=== PATIENT | male | born 2000 | race Hispanic/Latino ===

== ENCOUNTER 2022-05-10 09:00 | Emergency (ER) | payer OTHER ==
[~2022-05-10] VITALS: Ht 167.6 cm; Wt 72.6 kg
[2022-05-10 09:36] LABS: BASOPHILS % (AUTO) 1.5 % (0.0-5.0); EOSINOPHILS % (AUTO) 9.4 % (0.0-8.0); HEMATOCRIT 45.8 % (42-54); MEAN CORPUSCULAR HEMOGLOBIN 27.8 pg (27.0-33.0); MEAN CORPUSCULAR HGB CONC 32.8 g/dL (32.0-36.0); MONOCYTES % (AUTO) 6.1 % (3.0-13.0); NEUTROPHILS % (AUTO) 48.7 % (40.0-77.0); PLATELET COUNT (AUTO) 274 K/uL (130-400); RED BLOOD CELL COUNT(AUTO) 5.39 MIL/uL (4.50-6.20); RED CELL DISTRIBUTION WIDTH 13.1 % (11.0-15.5); WHITE BLOOD COUNT (AUTO) 7.3 K/uL (4.8-10.8)
[2022-05-10 09:43] LABS: POTASSIUM 3.6 mmol/L (3.5-5.1)
[2022-05-10 09:48] LABS: ALBUMIN 4.1 g/dL (3.5-5.0); TOTAL PROTEIN, SERUM 7.6 g/dL (6.0-8.3)
[2022-05-10] MEDS ORDERED: IBUPROFEN 600 MG TABLET PO ONE (11:30)
[2022-05-10] MEDS ORDERED: ALBUTEROL 0.083% 2.5 MG/3 ML INH IH ONE (11:30)
[2022-05-10] MEDS ORDERED: SOLU-MEDROL 40MG VIAL IVP ONE (11:30)
[2022-05-10] MEDS ORDERED: IPRATROPIUM 0.5 MG/2.5 ML INH IH ONE (11:30)
[2022-05-10] MEDS ORDERED: IPRA0.2S54 IH (12:58)
[2022-05-10] MEDS ORDERED: FLUT16H NS (12:58)
[2022-05-10] MEDS ORDERED: BENZ-39 PO (12:58)
[2022-05-10] MEDS ORDERED: PRED20TA3 PO (12:58)
[2022-05-10] MEDS ORDERED: CETI10TA57 PO (12:59)
[2022-05-10 13:04] VITALS: BP 109/60
== END 2022-05-10 13:11 | disposition home or self-care (01) ==
LOC: EDH 09:00
DX: J45.31 Mild persistent asthma with (acute) exacerbation (principal); R07.89 Other chest pain; R05.9 Cough, unspecified; Z20.822 Contact with and (suspected) exposure to COVID-19
CPT/HCPCS: 99285; 96374; 71045; 87635; 83735; 84484; 80053; 85025; 87804 ×2; 36415; 93005; 94640; C9803; J2920

== ENCOUNTER 2023-02-07 00:35 | Emergency (ER) | payer OTHER ==
[~2023-02-07] VITALS: Ht 167.6 cm; Wt 73.9 kg
[~2023-02-07 00:35] MED LIST: BENZ-39 PO; CETI10TA57 PO; FLUT16H NS; IPRA0.2S54 IH; PRED20TA3 PO
[2023-02-07] MEDS ORDERED: KETOROLAC 30MG VIAL (30MG/ML) IVP ONE (01:00)
[2023-02-07] MEDS ORDERED: DiphenhydrAMINE HCL 50 MG/ML VIAL IV ONE (01:00)
[2023-02-07] MEDS ORDERED: METOCLOPRAMIDE 10 MG/2 ML VIAL IVP ONE (01:00)
[2023-02-07] MEDS ORDERED: KETOROLAC 15MG/ML VIAL (15MG/ML) ONE (01:05)
[2023-02-07 01:27] LABS: BASOPHILS # (AUTO) 0.05 K/uL (0.00-0.20); BASOPHILS % (AUTO) 0.5 % (0.0-5.0); EOSINOPHILS # (AUTO) 0.55 K/uL (0.00-0.70); EOSINOPHILS % (AUTO) 5.2 % (0.0-8.0); HEMATOCRIT 45.5 % (42-54); IMMATURE GRANULOCYTE ABSOLUTE 0.03 K/uL (0-1); LYMPHOCYTES # (AUTO) 1.7 K/uL (1.0-4.8); LYMPHOCYTES % (AUTO) 15.9 % (21.0-51.0); MEAN CORPUSCULAR HGB CONC 33.4 g/dL (32.0-36.0); MEAN CORPUSCULAR VOLUME 83.9 fL (79-99); MONOCYTES # (AUTO) 0.6 K/uL (0.1-1.0); MONOCYTES % (AUTO) 5.3 % (3.0-13.0); NEUTROPHILS # (AUTO) 7.7 K/uL (1.8-7.7); NEUTROPHILS % (AUTO) 72.8 % (40.0-77.0); PLATELET COUNT (AUTO) 283 K/uL (130-400); RED BLOOD CELL COUNT(AUTO) 5.42 MIL/uL (4.50-6.20); RED CELL DISTRIBUTION WIDTH 11.9 % (11.0-15.5); WHITE BLOOD COUNT (AUTO) 10.6 K/uL (4.8-10.8)
[2023-02-07 01:39] LABS: POTASSIUM 3.3 mmol/L (3.5-5.1)
[2023-02-07 01:44] LABS: ALBUMIN 3.8 g/dL (3.5-5.0); BILIRUBIN,TOTAL 0.2 mg/dL (0.2-1.0); TOTAL PROTEIN, SERUM 7.3 g/dL (6.0-8.3)
[2023-02-07 01:46] LABS: RAPID GROUP A STREP negative (NEGATIVE)
[2023-02-07 01:47] LABS: SARS-CoV-2, RNA, NAAT NEGATIVE SARS CoV-2 (NEGATIVE)
[2023-02-07 01:48] LABS: INFLUENZA TYPE A Negative For Type A (NEGATIVE); INFLUENZA TYPE B Negative For Type B (NEGATIVE)
[2023-02-07 02:03] LABS: APPEARANCE,URINE CLEAR (CLEAR); BILIRUBIN,URINE NEGATIVE (NEGATIVE); COLOR,URINE LIGHT-YELLOW (YELLOW); GLUCOSE, URINE (UA) NEGATIVE (NEGATIVE); KETONES,URINE NEGATIVE (NEGATIVE); LEUKOCYTE ESTERASE ,URINE NEGATIVE Leu/uL (NEGATIVE); MUCUS,URINE RARE LPF (None Seen); NITRATE,URINE NEGATIVE (NEGATIVE); OCCULT BLOOD,URINE NEGATIVE (NEGATIVE); PH,URINE 6.5 (5.0-8.0); PROTEIN,URINE NEGATIVE (NEGATIVE); RBC,URINE 0-1 /HPF (0-1); UROBILINOGEN,URINE 0.2 mg/dL (0.2-1.0); WBC,URINE 0-1 /HPF (0-1)
[2023-02-07] MEDS ORDERED: DEXAMETHASONE SOD PHOSPHATE 4 MG/ML 1ML VIAL IVP ONE (02:30)
[2023-02-07] MEDS ORDERED: MORPHINE 2 MG SYG IVP ONE (03:00)
[2023-02-07] MEDS ORDERED: IBUP-1493 PO (03:52)
[2023-02-07 04:57] VITALS: BP 113/60; PULSE 63; RESP 18; O2SAT 99
== END 2023-02-07 04:46 | disposition home or self-care (01) ==
LOC: EDH 00:35
DX: G43.909 Migraine, unspecified, not intractable, without status migrainosus (principal); J45.909 Unspecified asthma, uncomplicated; Z20.822 Contact with and (suspected) exposure to COVID-19
CPT/HCPCS: 99285; 96374; 96375; 70450; 87635; 80053; 85025; 87880; 87804 ×2; 81001; 36415; J1100; C9803; J1200; J2270; J2765; J1885